=== PATIENT | male | born 1960 | race Caucasian/White ===

== ENCOUNTER 2017-01-12 00:08 | Emergency (ER) | payer OTHER ==
[~2017-01-12] VITALS: Ht 172.7 cm; Wt 59.0 kg
[~2017-01-12 00:08] MED LIST: Folic Acid PO; THIA100T13 PO
--- NOTE | 2017-01-12 00:33 | NUR ---
pt ambulatory w/ steady gait, c/o lt shoulder pain s/p glf today, no ko. AOX4, afebrile w/ resp even & unlabored, denies any head trauma, limited ROM to lt shoulder w/ no obvious deformity lt shoulder noted. Dr. Gonzalez at bedside for further eval.
[2017-01-12] MEDS ORDERED: IBUPROFEN 400 MG TABLET ONE (00:44)
--- NOTE | 2017-01-12 00:58 | NUR ---
XR lt shoulder at bedside.
[2017-01-12] MEDS ORDERED: IBUPROFEN 400 MG TABLET PO ONE (01:00)
[2017-01-12] MEDS ORDERED: HYDROCODONE/APAP 5/325MG 1 EACH TABLET ONE (01:17)
--- NOTE | 2017-01-12 01:26 | NUR ---
pt medicated as ordered for TOM pain. Dr. Gonzalez at bedside for update on pt status w/ discharge instructions. Patient discharged to home in stable condition. Written and verbal after care instructions given. Patient and daughter verbalizes understanding of instruction.
[2017-01-12] MEDS ORDERED: HYDROCODONE/APAP 5/325MG 1 EACH TABLET PO ONE (01:30)
[2017-01-12 01:34] VITALS: BP 100/62
== END 2017-01-12 01:31 | disposition home or self-care (01) ==
LOC: ER 00:10
DX: S42.342A Displaced spiral fracture of shaft of humerus, left arm, initial encounter for closed fracture (principal); F32.9 Major depressive disorder, single episode, unspecified; I10 Essential (primary) hypertension; G40.909 Epilepsy, unspecified, not intractable, without status epilepticus; F10.20 Alcohol dependence, uncomplicated; Z98.890 Other specified postprocedural states; W18.39XA Other fall on same level, initial encounter; Y93.89 Activity, other specified; Y92.89 Other specified places as the place of occurrence of the external cause; Y99.9 Unspecified external cause status
CPT/HCPCS: 73030-TC; A4606; Z7610